=== PATIENT | male | born 1970 | race Caucasian/White ===

== ENCOUNTER 2020-11-23 20:00 | Inpatient (IN) ==
[2020-11-23] MEDS ORDERED: IOPAMIDOL 100 ML BOTTLE IV ONE (20:01)
[2020-11-23] MEDS ORDERED: ONDANSETRON 4 MG/2 ML VIAL IV ONE (20:14)
[2020-11-23] MEDS ORDERED: methylPREDNISolone SOD SUCC 125 MG/2 ML VIAL IV ONE (20:16)
[2020-11-23] MEDS ORDERED: FUROSEMIDE 40 MG/4 ML VIAL IV ONE (20:16)
[2020-11-23] MEDS ORDERED: IPRATROPIUM/ALBUTEROL 3 ML AMPUL.NEB NEB ONE (20:16)
--- NOTE | 2020-11-23 20:19 | Emergency Department Note ---
Abdominal Pain HPI General Chief Complaint: Abdominal Pain Stated Complaint: bilat feet swelling and abdm pain Time Seen by Provider: 11/23/20 20:05 Source: patient Mode of arrival: ambulatory Limitations: no limitations History of Present Illness HPI Narrative: 50-year-old male presents by private vehicle with multiple complaints. Patient complains of abdominal pain and shortness of breath and lower extremity swelling has gotten worse over the last week. Patient has a history of COPD, CHF, cardiomyopathy, AICD, liver failure DVT PE. Is also been having some chest pain in addition to abdominal pain. He is anticoagulated on Xarelto. He recently quit drinking alcohol and smoking 2 weeks ago. He was started on phenobarbital for alcohol withdrawal. Patient has noted increasing swelling in both of his legs. He has pain in both of his legs and redness in both his legs right worse than the left and it also feels warm. Patient was started on phenobarbital at [facility] due to alcohol withdrawal he has continued this per his primary doctor. Patient denies any history of illicit drug abuse. No fevers no chills.. Related Data Home Medications Medication Instructions Recorded Confirmed amiodarone 400 mg tablet 400 mg PO QDAY 06/02/17 06/02/17 oxycodone-acetaminophen 10 mg-325 1 tab PO Q4H tab 06/02/17 06/02/17 mg tablet rivaroxaban 20 mg tablet 20 mg PO QDAY 06/02/17 06/02/17 Previous Rx's Medication Instructions Recorded gabapentin 800 mg tablet 800 mg PO TID #90 tab 06/02/17 metoprolol succinate 100 mg 100 mg PO QDAY #30 tab 06/02/17 tablet,extended release 24 hr varenicline 1 mg tablet 1 mg PO BID #28 tab 06/02/17 Allergies Allergy/AdvReac Type Severity Reaction Status Date / Time Penicillins Allergy Intermediate Hives Verified 01/09/19 11:12 NSAIDS (Non-Steroidal Allergy Unknown Hives Verified 01/09/19 11:12 Anti-Inflamma ibuprofen [From Motrin] Allergy Anaphylaxis Verified 01/09/19 11:12 Review of Systems ROS ROS Narrative: Narrative: All systems ED: reviewed and negative except as stated. Constitutional: Denies fever, chills and sweats Eyes: Denies vision change Cardiovascular: Reports chest pain, orthopnea and edema Respiratory: Reports shortness of breath Gastrointestinal: Reports abdominal pain Genitourinary: Denies dysuria, frequency, urgency and hematuria Musculoskeletal: Denies back pain and joint pain Integumentary: Denies rash Neurological: Denies headache and dizziness Psychiatric: Denies anxiety, suicidal thoughts and homicidal thoughts Endocrine: Denies polydipsia and polyuria Hematological/Lymphatic: Denies easy bleeding and easy bruising PFSH Narrative Patient History Narrative: Narrative: Medical/Surgical/Family History All Active Problems (Updated 11/23/20 @ 23:32 by Rios Thompson MD) Chest pain, non-cardiac (Acute) Ascites due to alcoholic cirrhosis (Acute) COPD (chronic obstructive pulmonary disease) (Acute) Edema, peripheral (Acute) 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) Cigarette smoker (Chronic) Cardiomyopathy (Chronic) History of myocardial infarction (Chronic) History of automatic internal cardiac defibrillator (AICD) (Chronic) History of ventricular fibrillation (Chronic) History of pulmonary embolus (PE) (Chronic) Hypertension, essential (Chronic) COPD (chronic obstructive pulmonary disease) (Chronic) Asthma (Chronic) Obesity (BMI 30-39.9) (Chronic) Medical History Asthma Cardiomyopathy Cigarette smoker COPD (chronic obstructive pulmonary disease) History of myocardial infarction History of pulmonary embolus (PE) History of ventricular fibrillation Hypertension, essential [facility] (current) use of anticoagulants Obesity (BMI 30-39.9) Surgical History History of automatic internal cardiac defibrillator (AICD) History of automatic internal cardiac defibrillator (AICD) Social History Smoking Status: Former smoker Alcohol Intake Frequency: a few times a month Substance Use: does not use Exam Narrative Narrative: Constitutional: Awake alert no acute distress well-nourished well- developed HEENT: Normocephalic, atraumatic PERRLA, EOMI, oral mucosa moist, pharynx clear, Neck: Supple, no lymphadenopathy, no JVD Lungs: Diminished breath sounds with expiratory wheezes bilaterally lungs clear Cardiac: Regular tachycardic rhythm normal distal pulses, GI: Soft distended, diffusely tender no guarding no rebound Musculoskeletal: No tenderness, no deformities, 2+ pedal edema bilaterally, full range of motion Neuro: Awake alert, cranial nerves II through XII grossly intact, no focal motor or sensory deficits Psychiatric: Normal mood and affect Skin: Warm dry no rash, cap refill less than 2 seconds, bilateral lower extremities with erythema General Limitations: no limitations Course Consultations Consultation #1: Case discussed with hospitalist, Dr. Foy who agrees to admit patient. Time: 23:31 Vital Signs Vital signs: Vital Signs Temperature 98.4 F 11/23/20 20:01 Pulse Rate 133 H 11/23/20 20:01 Respiratory Rate 22 11/23/20 20:01 Blood Pressure 146/82 11/23/20 20:01 Pulse Oximetry (%) 95 11/23/20 20:01 Temperature 98.4 F 11/23/20 20:01 Pulse Rate 126 H 11/23/20 21:38 Respiratory Rate 19 11/23/20 21:01 Blood Pressure 123/85 11/23/20 21:38 Pulse Oximetry (%) 90 11/23/20 21:38 MDM MDM Narrative Medical decision making narrative: 50-year-old male history of COPD alcohol abuse presents with abdominal pain and swelling and lower extremity edema for the last week along with some shortness of breath. Chest x-ray appears clear today BNP and troponin are normal. Abdomen is distended CT abdomen does show a moderate amount of ascites. Also has lower extremity edema. Patient has never had ascites before. Case discussed with hospitalist, Dr. Painter who agrees admit patient to the hospital. Will consult radiology in the morning for possible paracentesis. All ED findings and plan for mission discussed with patient and he is agreeable. All questions were answered. Differential Diagnosis Differential Diagnosis: CHF, cirrhosis with ascites, COPD exacerbation, Lab Data Result diagrams: 11/23/20 20:25 11/23/20 20:25 Labs: Lab Results 11/23/20 11/23/20 11/23/20 Range/Units 20:25 20:25 20:25 WBC 10.2 (4.5-11.0) K/mcL RBC 3.30 L (4.50-5.90) M/mcL Hgb 12.1 L (13.5-16.5) g/dL Hct 35.7 L (41.0-55.0) % MCV 108.2 H (80.0-100.0) fL MCH 36.7 H (26.0-34.0) pg MCHC 33.9 (31.0-36.0) g/dL RDW 16.0 H (11.5-14.5) % Plt Count 122 L (140-440) K/mcL MPV 8.5 (7.4-10.4) fL Seg Neutrophils % 69 (38-78) % Lymphocytes % 27 (15-49) % Monocytes % (Manual) 3 (1-12) % Basophils % (Manual) 1 (0-2) % Platelet Estimate Decreased A (Normal) RBC Morphology Abnormal A (Normal) Macrocytosis 1+ A (None Seen) PT 19.1 H (11.9-14.5) sec INR 1.5 H (0.9-1.1) Sodium 133 (133-145) mmol/L Potassium 3.3 (3.3-5.1) mmol/L Chloride 94 L (96-108) mmol/L Carbon Dioxide 25 (22-30) mmol/L Anion Gap 14.0 (8.0-16.0) BUN 3 L (6-20) mg/dL Creatinine 0.6 L (0.7-1.2) mg/dL POC Creatinine 0.7 (0.6-1.2) mg/dL GFR Calculation 116 Glucose 98 (70-105) mg/dL Calcium 7.9 L (8.6-10.4) mg/dL Total Bilirubin 4.3 H (0.1-1.0) mg/dL AST 151 H (<40) U/L ALT 34 (<40) U/L Alkaline Phosphatase 624 H (39-117) U/L Troponin T (<0.03) ng/mL NT-Pro-B Natriuret Pep 76.1 (<125.0) pg/mL Total Protein 6.0 (5.9-8.4) gm/dL Albumin 2.6 L (3.2-5.2) gm/dL Globulin 3.4 (2.2-3.7) gm/dL Albumin/Globulin Ratio 0.8 L (1.0-2.3) Lipase 16 (7-60) U/L Urine Color Urine Appearance (Clear) Urine pH (5.0-9.0) Ur Specific [place] (1.000-1.035) Urine Protein (Negative) mg/dL Urine Glucose (UA) (Negative) mg/dL Urine Ketones (Negative) mg/dL Urine Occult Blood (Negative) mg/dL Urine Nitrate (Negative) Urine Bilirubin (Negative) mg/dL Urine Urobilinogen mg/dL Ur Leukocyte Esterase (Negative) /ug Urine RBC (0-3) /hpf Urine WBC (0-4) /hpf Ur Squamous Epith Cells (0-4) /hpf Urine Bacteria (0) /hpf Hyaline Casts (0-2) /lph Urine Mucus (None) /hpf Ur Culture Indicated? 11/23/20 11/23/20 Range/Units 20:25 21:09 WBC (4.5-11.0) K/mcL RBC (4.50-5.90) M/mcL Hgb (13.5-16.5) g/dL Hct (41.0-55.0) % MCV (80.0-100.0) fL MCH (26.0-34.0) pg MCHC (31.0-36.0) g/dL RDW (11.5-14.5) % Plt Count (140-440) K/mcL MPV (7.4-10.4) fL Seg Neutrophils % (38-78) % Lymphocytes % (15-49) % Monocytes % (Manual) (1-12) % Basophils % (Manual) (0-2) % Platelet Estimate (Normal) RBC Morphology (Normal) Macrocytosis (None Seen) PT (11.9-14.5) sec INR (0.9-1.1) Sodium (133-145) mmol/L Potassium (3.3-5.1) mmol/L Chloride (96-108) mmol/L Carbon Dioxide (22-30) mmol/L Anion Gap (8.0-16.0) BUN (6-20) mg/dL Creatinine (0.7-1.2) mg/dL POC Creatinine (0.6-1.2) mg/dL GFR Calculation Glucose (70-105) mg/dL Calcium (8.6-10.4) mg/dL Total Bilirubin (0.1-1.0) mg/dL AST (<40) U/L ALT (<40) U/L Alkaline Phosphatase (39-117) U/L Troponin T < 0.01 (<0.03) ng/mL NT-Pro-B Natriuret Pep (<125.0) pg/mL Total Protein (5.9-8.4) gm/dL Albumin (3.2-5.2) gm/dL Globulin (2.2-3.7) gm/dL Albumin/Globulin Ratio (1.0-2.3) Lipase (7-60) U/L Urine Color Marisol Urine Appearance Clear (Clear) Urine pH 5.0 (5.0-9.0) Ur Specific [place] 1.015 (1.000-1.035) Urine Protein Negative (Negative) mg/dL Urine Glucose (UA) Negative (Negative) mg/dL Urine Ketones Negative (Negative) mg/dL Urine Occult Blood Negative (Negative) mg/dL Urine Nitrate Negative (Negative) Urine Bilirubin Negative (Negative) mg/dL Urine Urobilinogen 4.0 A mg/dL Ur Leukocyte Esterase Negative (Negative) /ug Urine RBC 0 (0-3) /hpf Urine WBC 1 (0-4) /hpf Ur Squamous Epith Cells 0 (0-4) /hpf Urine Bacteria None (0) /hpf Hyaline Casts 6 H (0-2) /lph Urine Mucus Many A (None) /hpf Ur Culture Indicated? No ED POC Tests ED POC Tests: MICHAEL - SARS Antigen Negative Radiology Data Radiology results reviewed: Yes I reviewed the patient's radiology results. Radiology results narrative: Chest x-ray reviewed by me shows no definite acute process, official radiology report to follow, CT of the abdomen pelvis with IV contrast per radiologist shows diffuse low-attenuation of the liver with patchy heterogeneity likely related to hepatic dysfunction and possible hepatocellular necrosis. No periportal edema or hepatic volume loss. Patent portal vein. Moderate abdominal pelvic ascites and mild diffuse mesenteric edema. Anasarca. EKG Data EKG #1: EKG attestation: Yes I reviewed and interpreted this EKG. and Yes There are no EKG findings of acute coronary syndrome EKG results narrative: KG performed at 2023 shows sinus tachycardia rate of 134 with a left axis deviation, inferior Q waves, nonspecific ST changes Discharge Plan Patient/Caregiver Discharge Instructions Pt seen by CURRICULUM DEVELOPER/PA only: No Clinical Impression: Ascites due to alcoholic cirrhosis, COPD (chronic obstructive pulmonary disease), Edema, peripheral Patient Disposition: Xfer As Outpt/Obs ([facility]) Condition: Fair Follow up with: Chica,El, PA-C [Primary Care Provider] - Prescriptions: No Action rivaroxaban [Xarelto] 20 mg tablet 20 mg PO QDAY RF: 0 oxycodone-acetaminophen 10-325 mg tablet 1 tab PO Q4H RF: 0 amiodarone 400 mg tablet 400 mg PO QDAY RF: 0 gabapentin 800 mg tablet 800 mg PO TID Qty: 90 RF: 1 metoprolol succinate 100 mg tablet extended release 24 hr 100 mg PO QDAY Qty: 30 RF: 1 varenicline [Chantix] 1 mg tablet 1 mg PO BID Qty: 28 RF: 0
[2020-11-23 20:36] LABS: POC Creatinine 0.7 mg/dL (0.6-1.2)
[2020-11-23] MEDS: morphine 2 MG/ML VIAL IV PRN ×4 (21:01→23:28)
--- NOTE | 2020-11-23 21:05 | EKG ---
[facility] Test Date: 2020-11-23 Pat Name: Inocencio Olson Department: ED Room: Gender: Male Financial Services Specialist: : 1970 Requested By: Rios Thompson Order Number: [id number] Reading MD: Augie Rosas M.D. Measurements Intervals [place] Rate: 134 P: 28 TN: 117 QRS: -39 QRSD: 101 T: 63 QT: 318 QTc: 475 Interpretive Statements Sinus tachycardia Left axis deviation Low voltage, extremity leads POOR R-WAVE PROGRESSION, V3 NO PRIOR TRACING FOR COMPARISON BORDERLINE ECG Electronically Signed On 11-23-2020 21:04:37 PDT by Augie Rosas M.D. /[email or web address]/[id number]/[id number]
[2020-11-23 21:13] LABS: Hematocrit 35.7 % (41.0-55.0); Hemoglobin 12.1 g/dL (13.5-16.5); Mean Cell Volume 108.2 fL (80.0-100.0); Mean Corpuscular HGB Conc 33.9 g/dL (31.0-36.0); Mean Platelet Volume 8.5 fL (7.4-10.4); Platelet Count 122 K/mcL (140-440); WBC 10.2 K/mcL (4.5-11.0)
[2020-11-23 21:30] LABS: INR 1.5 (0.9-1.1); Prothrombin Time 19.1 sec (11.9-14.5)
[2020-11-23 21:31] LABS: proBNP 76.1 pg/mL (<125.0)
[2020-11-23 21:34] LABS: ALT/SGPT 34 U/L (<40); AST/SGOT 151 U/L (<40); Albumin 2.6 gm/dL (3.2-5.2); Albumin/Globulin Ratio 0.8 (1.0-2.3); Alkaline Phosphatase 624 U/L (39-117); Bilirubin,Total 4.3 mg/dL (0.1-1.0); Blood Urea Nitrogen 3 mg/dL (6-20); Calcium 7.9 mg/dL (8.6-10.4); Carbon Dioxide 25 mmol/L (22-30); Chloride 94 mmol/L (96-108); Globulin 3.4 gm/dL (2.2-3.7); Glomerular Filtration Rate 116; Glucose 98 mg/dL (70-105)
[2020-11-23 21:57] LABS: Basophils % (Manual) 1 % (0-2); Lymphocytes % 27 % (15-49); Macrocytosis 1+ (None Seen); Monocytes % (Manual) 3 % (1-12); Platelet Estimate DECREASED (Normal); RBC Morphology ABNORMAL (Normal); Segmented Neutrophils % 69 % (38-78)
[2020-11-23 22:30] LABS: Appearance,Urine CLEAR (Clear); Bilirubin,Urine Negative (Negative); Color,Urine AMBER; Culture Indicated,Urine No; Glucose,Urine (UA) Negative (Negative); Ketones,Urine Negative (Negative); Leukocyte Esterase,Urine Negative /ug (Negative); Mucus,Urine MANY /hpf; Nitrate,Urine Negative (Negative); Protein,Urine Negative (Negative); Specific Gravity,Urine 1.015 (1.000-1.035); Urine Blood Negative (Negative); Urine Hyaline Cast 6 /lph (0-2); Urine RBC 0 /hpf (0-3); Urine Squamous Epithelial Cell 0 /hpf (0-4); Urine WBC 1 /hpf (0-4)
[2020-11-24] MEDS: morphine 2 MG/ML VIAL IV PRN ×5 (01:32→22:01)
[2020-11-24 05:30] LABS: Basophils # (Auto) 0.02 K/mcL (0.00-0.20); Basophils % (Auto) 0.3 % (0.0-2.0); Eosinophils # (Auto) 0 K/mcL (0.00-0.70); Eosinophils % (Auto) 0 % (0.0-7.0); Hematocrit 32.2 % (41.0-55.0); Hemoglobin 11.1 g/dL (13.5-16.5); Lymphocytes # (Auto) 1.54 K/mcL (1.50-4.80); Mean Corpuscular HGB Conc 34.5 g/dL (31.0-36.0); Mean Platelet Volume 8.7 fL (7.4-10.4); Monocytes # (Auto) 0.18 K/mcL (0.10-0.90); Monocytes % (Auto) 2.7 % (1.0-12.0); Platelet Count 104 K/mcL (140-440); RBC 3.01 M/mcL (4.50-5.90); Red Cell Distribution Width 15.8 % (11.5-14.5); WBC 6.7 K/mcL (4.5-11.0)
[2020-11-24 05:52] LABS: ALT/SGPT 31 U/L (<40); AST/SGOT 134 U/L (<40); Albumin 2.6 gm/dL (3.2-5.2); Albumin/Globulin Ratio 0.9 (1.0-2.3); Alkaline Phosphatase 584 U/L (39-117); Bilirubin,Direct 2.3 mg/dL (<0.3); Bilirubin,Total 3.5 mg/dL (0.1-1.0); Blood Urea Nitrogen 5 mg/dL (6-20); Calcium 7.9 mg/dL (8.6-10.4); Carbon Dioxide 27 mmol/L (22-30); Chloride 95 mmol/L (96-108); Glomerular Filtration Rate 103; Glucose 184 mg/dL (70-105); Lactate Dehydrogenase 379 U/L (135-225); Phosphorous 2.2 mg/dL (2.5-4.5); Triglycerides 103 mg/dL (<150); Uric Acid 7.1 mg/dL (2.5-8.0)
--- NOTE | 2020-11-24 06:40 | XRay Report ---
CLINICAL INFORMATION: dyspnea COMPARISON: 01/09/2019 FINDINGS: Cardiomediastinal silhouette and pulmonary vessels remain normal. Single lead cardiac pacer/AICD remains in stable satisfactory position without complication. The lungs are clear. No effusions. IMPRESSION: Negative Interpreted and Authenticated by: El Pichardo 11/24/20
--- NOTE | 2020-11-24 07:31 | Cat Scan Report ---
CLINICAL INFORMATION: Abdominal pain COMPARISON: None. TECHNIQUE: Following enteric contrast, 80 cc of Isovue-370 were injected intravenously, and 60 seconds later, 0.625 mm helical slices were obtained from the mid heart through the subtrochanteric regions. Following reconstruction, 2.5 mm sagittal, coronal and axial reformatted images were processed and reviewed at bone, lung and soft tissue windows. Five minutes later, 0.625 mm helical slices were obtained from the mid heart through the kidneys and viewed at soft tissue windows.The exam was performed using radiation dose optimization techniques including, but not limited to, automated exposure control, adjustment of the mA and/or kV according to patient size and use of iterative reconstruction technique. FINDINGS: Lung bases show no abnormality - no effusion. The visualized heart is mildly enlarged. Pacemaker and leads are insatisfactory position. Abdominal images show mild hepatomegaly with severe diffuse steatosis. A 4.2 x 2 cm lower attenuation region in the lizzette hepatis is likely an area of more focally concentrated fat. There are no regions of hyperenhancement with rapid washout to suggest hepatoma. The gallbladder is contracted with diffuse wall enhancement. Common bile duct is normal caliber at 6 mm. Moderate ascites seen in the perihepatic perisplenic in the pelvic region. Moderate pericholecystic fluid is likely an extension of ascites. The portal vein is normal diameter. There are borderline perisplenic varices, but no perigastric or esophageal varices. The spleen is normal in size and attenuation. Both kidneys, adrenal glands, pancreas and aorta including aortic branches are normal in size configuration and attenuation without focal lesion. There is no free air or adenopathy. Pelvic images show prostate, seminal vesicles and urinary bladder are normal. Scattered sigmoid diverticuli appreciated, but no evidence of diverticulitis. The remaining large bowel, appendix region small bowel and stomach are grossly normal. Bone windows show L5-S1 posterior fusion laminectomy changes which are anatomically aligned. There are no focal osseous lesions. IMPRESSION: 1. Mild hepatomegaly with severe diffuse steatosis. A 4.2 x 2 cm region of more focally concentrated fat seen in the lizzette hepatis. Moderate ascites in compatible developing cirrhosis. Consider ultrasound-guided biopsy of the liver parenchyma to definitively diagnose and stage cirrhosis 2. Contracted gallbladder with wall enhancement. Pericholecystic fluid is noted but this likely represents an extension of ascites. Please correlate with symptoms of cholecystitis - consider ultrasound. 3. Mild atrophy of the pancreatic head and neck 4. Small periumbilical hernia containing a small amount of ascites. Interpreted and Authenticated by: El Pichardo 11/24/20
--- NOTE | 2020-11-24 08:30 | Internal Med History&Physical ---
HPI History of Present Illness Patient information: Note initiated : 11/24/20 at 8:28 am Service Date, if different from initiated Date: [] Patient: Inocencio Olson 50 y/o M admitted on 11/24/20 for bilat feet swelling and abdm pain. Chief Complaint: [] History of present illness: Mr. Olson is a 50 year old M presents to ED with abdominal pain and bilateral leg swelling for several days. Of note patient was recently discharged from [facility] on the for alcoholic hepatitis and withdrawal. Was post to be on prednisone for 4 weeks and then taper over two. Patient states he did have a 16 ounce beer Wednesday morning and had maybe 1 a few days prior to that was otherwise cut back significantly. He is on phenobarbital twice a day for withdrawal symptoms by his PCP. Also quit smoking several weeks ago. CT abdomen pelvis with fatty liver contracted gallbladder with some pericholecystic fluid noted but that is felt to be related to ascites. And he does not have any noticeable pain right upper quadran he has some generalized mild tenderness to palpation In the ED he was found to have moderate ascites and a paracentesis was ordered for the morning. Chest x-ray BNP troponin are unremarkable. Review of Systems: Pertinent positives as above. Denies headache/fever/chills/nausea/vomiting/chest or abdominal pain/cough/dyspnea/diarrhea. Any 10 point review of system reviewed negative PFSH PFSH All Active Problems (Updated 11/23/20 @ 23:32 by Rios Thompson MD) Chest pain, non-cardiac (Acute) Ascites due to alcoholic cirrhosis (Acute) COPD (chronic obstructive pulmonary disease) (Acute) Edema, peripheral (Acute) FPC (current) use of anticoagulants (Chronic) Cigarette smoker (Chronic) Cardiomyopathy (Chronic) History of myocardial infarction (Chronic) History of automatic internal cardiac defibrillator (AICD) (Chronic) History of ventricular fibrillation (Chronic) History of pulmonary embolus (PE) (Chronic) Hypertension, essential (Chronic) COPD (chronic obstructive pulmonary disease) (Chronic) Asthma (Chronic) Obesity (BMI 30-39.9) (Chronic) Medical History Asthma Cardiomyopathy Cigarette smoker COPD (chronic obstructive pulmonary disease) History of myocardial infarction History of pulmonary embolus (PE) History of ventricular fibrillation Hypertension, essential FPC (current) use of anticoagulants Obesity (BMI 30-39.9) Surgical History History of automatic internal cardiac defibrillator (AICD) History of automatic internal cardiac defibrillator (AICD) Social History (Updated 06/02/17 @ 15:58 by Rodolfo Raman PA-C) alcohol intake frequency: a few times a month substance use type: does not use MEDS/ALLERGIES Home Medications and Allergies Home Medications Medication Instructions Recorded Confirmed Type Lipitor 11/23/20 History albuterol sulfate 2 puff INHALATION Q6H PRN 11/23/20 11/24/20 History metoprolol succinate 100 mg PO DAILY 11/23/20 11/24/20 History rivaroxaban [Xarelto] 20 mg PO QDAY 11/23/20 11/24/20 History carisoprodol 350 mg PO BID 11/24/20 11/24/20 History furosemide 40 mg PO QID 11/24/20 11/24/20 History gabapentin 800 mg PO TID 11/24/20 11/24/20 History hydrocodone-acetaminophen 1 tab PO Q4H 11/24/20 11/24/20 History losartan 100 mg PO QID 11/24/20 11/24/20 History ondansetron 8 mg TRANSLINGUAL Q4H PRN 11/24/20 11/24/20 History phenobarbital 30 mg PO BID 11/24/20 11/24/20 History prednisone PO 11/24/20 11/24/20 History Allergies Allergy/AdvReac Type Severity Reaction Status Date / Time Penicillins Allergy Intermediate Hives Verified 01/09/19 11:12 NSAIDS (Non-Steroidal Allergy Unknown Hives Verified 01/09/19 11:12 Anti-Inflamma ibuprofen [From Motrin] Allergy Anaphylaxis Verified 01/09/19 11:12 EXAM Constitutional Vitals: Temp Pulse Resp BP Pulse Ox 98.4 F 107 H 20 124/78 93 11/24/20 07:16 11/24/20 07:16 11/24/20 07:16 11/24/20 07:16 11/24/20 07:16 Exam: General: Alert, Awake, No acute Distress Eyes/N/T: EOMI, PERRL, scleral icterus Head/Neck: neck supple, normocephalic atraumatic CV: Mildly tacky but regular, No murmurs, normal s1/s2 Pulm: Clear b/l, no wheezing/rhonchi/rales Abd: soft, nontender, +BS x4 Ext: no clubbing/cyanosis, 3+ b/l LE edema Neuro: Alert, no focal deficits, moves all extremities, CN 2-12 grossly intact, symmetrical strength b/l upper/lower, sensations intact b/l upper/lower Skin: warm/dry DATA Data Completed and Pending Labs: Labs from last 24 hours 11/24/20 11/24/20 11/23/20 05:00 05:00 21:09 WBC 6.7 RBC 3.01 L Hgb 11.1 L Hct 32.2 L MCV 107.0 H MCH 36.9 H MCHC 34.5 RDW 15.8 H Plt Count 104 L MPV 8.7 Neut % (Auto) 74.0 Lymph % (Auto) 23.0 [place] % (Auto) 2.7 Eos % (Auto) 0 Baso % (Auto) 0.3 Lymph # (Auto) 1.54 [place] # (Auto) 0.18 Eos # (Auto) 0 Baso # (Auto) 0.02 Seg Neutrophils % Lymphocytes % Monocytes % (Manual) Basophils % (Manual) Absolute Neutrophils 4.95 Platelet Estimate RBC Morphology Macrocytosis PT INR Sodium 130 L Potassium 4.1 Chloride 95 L Carbon Dioxide 27 Anion Gap 8.0 BUN 5 L Creatinine 0.8 POC Creatinine GFR Calculation 103 Glucose 184 H Uric Acid 7.1 Calcium 7.9 L Phosphorus 2.2 L Magnesium 1.5 L Total Bilirubin 3.5 H Direct Bilirubin 2.3 H GGT 782 H AST 134 H ALT 31 Alkaline Phosphatase 584 H Lactate Dehydrogenase 379 H Troponin T NT-Pro-B Natriuret Pep Total Protein 5.6 L Albumin 2.6 L Globulin 3.0 Albumin/Globulin Ratio 0.9 L Triglycerides 103 Lipase Urine Color Marisol Urine Appearance Clear Urine pH 5.0 Ur Specific [place] 1.015 Urine Protein Negative Urine Glucose (UA) Negative Urine Ketones Negative Urine Occult Blood Negative Urine Nitrate Negative Urine Bilirubin Negative Urine Urobilinogen 4.0 A Ur Leukocyte Esterase Negative Urine RBC 0 Urine WBC 1 Ur Squamous Epith Cells 0 Urine Bacteria None Hyaline Casts 6 H Urine Mucus Many A Ur Culture Indicated? No 11/23/20 11/23/20 11/23/20 20:25 20:25 20:25 WBC 10.2 RBC 3.30 L Hgb 12.1 L Hct 35.7 L MCV 108.2 H MCH 36.7 H MCHC 33.9 RDW 16.0 H Plt Count 122 L MPV 8.5 Neut % (Auto) Lymph % (Auto) [place] % (Auto) Eos % (Auto) Baso % (Auto) Lymph # (Auto) [place] # (Auto) Eos # (Auto) Baso # (Auto) Seg Neutrophils % 69 Lymphocytes % 27 Monocytes % (Manual) 3 Basophils % (Manual) 1 Absolute Neutrophils Platelet Estimate Decreased A RBC Morphology Abnormal A Macrocytosis 1+ A PT 19.1 H INR 1.5 H Sodium Potassium Chloride Carbon Dioxide Anion Gap BUN Creatinine POC Creatinine GFR Calculation Glucose Uric Acid Calcium Phosphorus Magnesium Total Bilirubin Direct Bilirubin GGT AST ALT Alkaline Phosphatase Lactate Dehydrogenase Troponin T < 0.01 NT-Pro-B Natriuret Pep Total Protein Albumin Globulin Albumin/Globulin Ratio Triglycerides Lipase Urine Color Urine Appearance Urine pH Ur Specific [place] Urine Protein Urine Glucose (UA) Urine Ketones Urine Occult Blood Urine Nitrate Urine Bilirubin Urine Urobilinogen Ur Leukocyte Esterase Urine RBC Urine WBC Ur Squamous Epith Cells Urine Bacteria Hyaline Casts Urine Mucus Ur Culture Indicated? 11/23/20 20:25 WBC RBC Hgb Hct MCV MCH MCHC RDW Plt Count MPV Neut % (Auto) Lymph % (Auto) [place] % (Auto) Eos % (Auto) Baso % (Auto) Lymph # (Auto) [place] # (Auto) Eos # (Auto) Baso # (Auto) Seg Neutrophils % Lymphocytes % Monocytes % (Manual) Basophils % (Manual) Absolute Neutrophils Platelet Estimate RBC Morphology Macrocytosis PT INR Sodium 133 Potassium 3.3 Chloride 94 L Carbon Dioxide 25 Anion Gap 14.0 BUN 3 L Creatinine 0.6 L POC Creatinine 0.7 GFR Calculation 116 Glucose 98 Uric Acid Calcium 7.9 L Phosphorus Magnesium Total Bilirubin 4.3 H Direct Bilirubin GGT AST 151 H ALT 34 Alkaline Phosphatase 624 H Lactate Dehydrogenase Troponin T NT-Pro-B Natriuret Pep 76.1 Total Protein 6.0 Albumin 2.6 L Globulin 3.4 Albumin/Globulin Ratio 0.8 L Triglycerides Lipase 16 Urine Color Urine Appearance Urine pH Ur Specific [place] Urine Protein Urine Glucose (UA) Urine Ketones Urine Occult Blood Urine Nitrate Urine Bilirubin Urine Urobilinogen Ur Leukocyte Esterase Urine RBC Urine WBC Ur Squamous Epith Cells Urine Bacteria Hyaline Casts Urine Mucus Ur Culture Indicated? A/P Narrative A/P Narrative: A: *Cirrhosis w/ascites from etoh, fatty liver: -Sequelae of thrombocytopenia/hyperbilirubinemia/hypoalbuminemia/macrocytosis -Paracentesis cc (11/24) *peripheral edema: 2/2 above *Hyponatremia: 2/2 above *Hypomagnesemia/hypophosphatemia: *h/o etoh abuse: states none since [facility] admit *h/o PE/PAF: On Xarelto *HTN: *Depression: *nonischemic CMP w/AICD (normal EF on most recent echo): * P: -IV lasix, start aldactone -s/p Paracentesis, pending fluid analysis -Replete electrolytes -cont ARB/BB -cont home prednisone and taper per pcp - -f/u with GI for cirrhosis, liver biopsy for confirmation -TEDs and elevate legs -ppx: Xarelto full code Time Spent With Patient Time: Total time spent is greater than 50% in coordination of care (as documented) at patient's floor/unit and/or counseling patient:
[2020-11-24] MEDS ORDERED: MAGNESIUM SULFATE 2 GM/50 ML BAG IV ONE (09:51)
[2020-11-24] MEDS ORDERED: chlordiazePOXIDE 25 MG CAPSULE PO PRN (10:15)
[2020-11-24] MEDS ORDERED: LORazepam 2 MG/ML VIAL IV PRN (10:15)
[2020-11-24] MEDS ORDERED: PHENobarbital 32.4 MG TABLET PO ONE ×2 (10:34→10:40)
[2020-11-24] MEDS ORDERED: SENNOSIDES 1 TABLET PO PRN (10:37)
[2020-11-24] MEDS ORDERED: POLYETHYLENE GLYCOL 3350 17 GM PACKET PO PRN (10:37)
[2020-11-24] MEDS ORDERED: METOCLOPRAMIDE 10 MG/2 ML VIAL IV PRN (10:37)
[2020-11-24] MEDS ORDERED: POTASSIUM CHLORIDE 20 MEQ TABLET PO PRN ×2 (10:37)
[2020-11-24] MEDS ORDERED: ONDANSETRON 4 MG/2 ML VIAL IV PRN (10:37)
[2020-11-24] MEDS ORDERED: MAGNESIUM SULFATE 2 GM/50 ML BAG IV PRN (10:37)
[2020-11-24] MEDS ORDERED: POTASSIUM CHLORIDE 40 MEQ in DEXTROSE 5% IN WATER 500 ML IV PRN (10:37)
[2020-11-24] MEDS: MULTIVIT,THER IRON,CA,FA & MIN 1 TABLET PO SCH (10:42)
[2020-11-24] MEDS: FOLIC ACID 1 MG TABLET PO SCH (10:42)
[2020-11-24] MEDS: ONDANSETRON 4 MG/2 ML VIAL IV PRN ×2 (10:42→16:13)
[2020-11-24] MEDS: THIAMINE 100 MG TABLET PO SCH (10:42)
[2020-11-24 10:44] LABS: LDH,Peritoneal Fluid 228 U/L; Total Protein,Peritoneal Fluid 0.9 gm/dL
[2020-11-24 11:30] LABS: Amphetamine Screen,Urine None detected; Barbiturate Screen,Urine Suspect positive; Benzodiazepines Screen,Urine Suspect positive; Cannabinoid Screen,Urine None detected; Cocaine Screen,Urine None detected; Opiate Screen,Urine Suspect Positive; Oxycodone, Urine Screen None detected; Phencyclidine Screen,Urine None detected
[2020-11-24] MEDS: SPIRONOLACTONE 25 MG TABLET PO SCH (11:34)
[2020-11-24] MEDS: LOSARTAN 50 MG TABLET PO SCH (11:34)
[2020-11-24] MEDS: predniSONE 20 MG TABLET PO SCH (11:34)
[2020-11-24] MEDS: FUROSEMIDE 40 MG/4 ML VIAL IV SCH ×2 (12:09→16:03)
[2020-11-24] MEDS: ALBUMIN HUMAN 12.5 GM/50 ML BAG IV SCH ×2 (12:10→16:13)
[2020-11-24 13:01] LABS: Mesothelial,Peritoneal Fluid 29 %; Monocyte,Peritoneal Fluid 34 %; Neutrophils,Peritoneal Fluid 26 %; Nucleated Cel,Peritoneal Fluid 67 /cumm; RBC,Peritoneal Fluid <50,000 /cumm
[2020-11-24] MEDS: 0.9 % SODIUM CHLORIDE 10 ML SYRINGE IV SCH ×3 (13:51→22:04)
[2020-11-24] MEDS: HYDROcodone/APAP 10/325MG TABLET PO PRN ×2 (13:58→19:50)
[2020-11-24] MEDS: GABAPENTIN 400 MG CAPSULE PO SCH ×2 (13:58→21:35)
--- NOTE | 2020-11-24 16:36 | Ultrasound Report ---
Ultrasound-guided paracentesis Technique: The procedure and risks including possibility of bleeding, infection, bowel and parenchymal organ perforation were explained the patient. He understood and wished to proceed. Account Specialist scanning demonstrated Ascites in the right lower quadrant which was free of bowel. The skin was marked, prepped and locally anesthetized 1% lidocaine to the level of the parietal peritoneum using a 25-gauge needle. A 18-gauge Yueh needle was then placed under sonographic guidance into the ascites and 50 cc of turbid ascites was aspirated and sent for requested studies. The needle was removed. Postprocedure scanning shows minimal residual ascites. No apparent complication - patient tolerated procedure well. IMPRESSION: Successful ultrasound-guided paracentesis yielding only 15 cc of turbid peritoneal fluid. Fluid was sent to the laboratory for requested studies. Postprocedure scanning shows only minimal residual fluid. Patient tolerated procedure well without apparent complication Interpreted and Authenticated by: El Pichardo 11/24/20
[2020-11-24] MEDS: RIVAROXABAN 20 MG TABLET PO SCH (17:29)
[2020-11-24] MEDS: IPRATROPIUM/ALBUTEROL 3 ML AMPUL.NEB NEB PRN (20:18)
[2020-11-24] MEDS ORDERED: CARISOPRODOL 350 MG TABLET PO PRN (21:00)
[2020-11-24] MEDS: NEUTRA PHOS 1 PACKET PO SCH (21:36)
[2020-11-24] MEDS: PHENobarbital 32.4 MG TABLET PO SCH (21:36)
[2020-11-24] MEDS: PHENobarb/HYOSCY/ATROPINE/SCOP 1 DOSE BOTTLE PO PRN (22:38)
[2020-11-25] MEDS: HYDROcodone/APAP 10/325MG TABLET PO PRN ×4 (00:07→20:24)
[2020-11-25] MEDS: 0.9 % SODIUM CHLORIDE 10 ML SYRINGE IV SCH ×6 (01:18→12:57)
[2020-11-25] MEDS: ONDANSETRON 4 MG/2 ML VIAL IV PRN ×2 (03:47→13:46)
[2020-11-25] MEDS: morphine 2 MG/ML VIAL IV PRN ×4 (03:47→16:42)
--- NOTE | 2020-11-25 07:32 | Internal Med Progress Note ---
SUBJECTIVE Subjective Patient information: Note initiated : 11/25/20 at 7:29 am Service Date, if different from initiated Date: [] Patient: Inocencio Olson 50 y/o M admitted on 11/24/20 for bilat feet swelling and abdm pain. Chief Complaint: [] Interval history: History of present illness: Mr. Olson is a 50 year old M presents to ED with abdominal pain and bilateral leg swelling for several days. Of note patient was recently discharged from [facility] on the for alcoholic hepatitis and withdrawal. Was post to be on prednisone for 4 weeks and then taper over two. Patient states he did have a 16 ounce beer Wednesday morning and had maybe 1 a few days prior to that was otherwise cut back significantly. He is on phenobarbital twice a day for withdrawal symptoms by his PCP. Also quit smoking several weeks ago. CT abdomen pelvis with fatty liver contracted gallbladder with some pericholecystic fluid noted but that is felt to be related to ascites. And he does not have any noticeable pain right upper quadran he has some generalized mild tenderness to palpation In the ED he was found to have moderate ascites and a paracentesis was ordered for the morning. Chest x-ray BNP troponin are unremarkable. 11/25 Feeling much better. Leg swelling feels much better although still quite a bit of edema. Review of Systems: denies headache/fever/chills/nausea/vomiting/chest or abdominal pain/cough/dyspnea/diarrhea. Otherwise see above. Constitutional Vitals: Vital Signs Temp Pulse Resp BP Pulse Ox 98.5 F 100 H 16 108/64 93 11/25/20 03:45 11/25/20 03:45 11/25/20 03:45 11/25/20 03:45 11/25/20 03:45 Period Temp Pulse Resp BP Sys/Campbell Pulse Ox Last 24 Hr 97.9 F-99.0 F 98-110 16-22 101-130/61-79 92-97 Intake and Output 11/24/20 11/25/20 11/25/20 21:59 05:59 13:59 Intake Total 1200 960 Balance 1200 960 Weight 122.425 kg Intake & Output: Intake & Output 11/24/20 11/25/20 11/25/20 21:59 05:59 13:59 Intake Total 1200 960 Balance 1200 960 Weight 122.425 kg Intake: IV 100 Oral 1200 860 Other: Meal Dinner Egg salad sandwich x 2 Percent of Meal Consumed 100% 100% Feeding Ability Independent Independent Urine Appearance Clear Urine Color Pale Urine Odor Normal # Voids 8 1 Exam: General: Alert, Awake, No acute Distress Eyes/N/T: EOMI,scleral icterus Head/Neck: neck supple, CV: Mildly tacky but regular, No murmurs, Pulm: Clear b/l, no wheezing/rhonchi/rales Abd: soft, nontender, +BS x4 Ext: no clubbing/cyanosis, 3+ b/l LE edema Neuro: Alert, no focal deficits, moves all extremities, Skin: warm/dry OBJ DATA Labs CBC & Chem 7: 11/24/20 05:00 11/25/20 05:32 Labs: Abnormal Lab Results 11/24/20 11/24/20 11/23/20 05:00 05:00 21:09 RBC 3.01 L Hgb 11.1 L Hct 32.2 L MCV 107.0 H MCH 36.9 H RDW 15.8 H Plt Count 104 L Platelet Estimate RBC Morphology Macrocytosis PT INR Sodium 130 L Chloride 95 L BUN 5 L Creatinine Glucose 184 H Calcium 7.9 L Phosphorus 2.2 L Magnesium 1.5 L Total Bilirubin 3.5 H Direct Bilirubin 2.3 H GGT 782 H AST 134 H Alkaline Phosphatase 584 H Lactate Dehydrogenase 379 H Total Protein 5.6 L Albumin 2.6 L Albumin/Globulin Ratio 0.9 L Urine Urobilinogen Hyaline Casts Urine Mucus Urine Opiates Screen Suspect positive A Ur Barbiturates Screen Suspect positive A U Benzodiazepines Scrn Suspect positive A 11/23/20 11/23/20 11/23/20 21:09 20:25 20:25 RBC 3.30 L Hgb 12.1 L Hct 35.7 L MCV 108.2 H MCH 36.7 H RDW 16.0 H Plt Count 122 L Platelet Estimate Decreased A RBC Morphology Abnormal A Macrocytosis 1+ A PT 19.1 H INR 1.5 H Sodium Chloride BUN Creatinine Glucose Calcium Phosphorus Magnesium Total Bilirubin Direct Bilirubin GGT AST Alkaline Phosphatase Lactate Dehydrogenase Total Protein Albumin Albumin/Globulin Ratio Urine Urobilinogen 4.0 A Hyaline Casts 6 H Urine Mucus Many A Urine Opiates Screen Ur Barbiturates Screen U Benzodiazepines Scrn 11/23/20 20:25 RBC Hgb Hct MCV MCH RDW Plt Count Platelet Estimate RBC Morphology Macrocytosis PT INR Sodium Chloride 94 L BUN 3 L Creatinine 0.6 L Glucose Calcium 7.9 L Phosphorus Magnesium Total Bilirubin 4.3 H Direct Bilirubin GGT AST 151 H Alkaline Phosphatase 624 H Lactate Dehydrogenase Total Protein Albumin 2.6 L Albumin/Globulin Ratio 0.8 L Urine Urobilinogen Hyaline Casts Urine Mucus Urine Opiates Screen Ur Barbiturates Screen U Benzodiazepines Scrn Meds: Medications Hydrocodone Bitart/Acetaminophen (Hydrocodone/Apap 10/325mg Tablet) 1 tab PO Q4HP PRN; Protocol PRN Reason: Pain Last Admin: 11/25/20 00:07 Dose: 1 tab Documented by: Albuterol/Ipratropium (Ipratropium/Albuterol 3 Ml Ampul.Neb) 3 ml NEB Q4HP PRN PRN Reason: Shortness Of Breath Last Admin: 11/24/20 20:18 Dose: 3 ml Documented by: Bell[place]onna/Phenobarbital (Phenobarb/Hyoscy/Atropine/Scop 1 Dose Bottle) 1 dose PO Q4HP PRN PRN Reason: Dyspepsia Last Admin: 11/24/20 22:38 Dose: 1 dose Documented by: Carisoprodol (Carisoprodol 350 Mg Tablet) 350 mg PO BIDP PRN PRN Reason: Muscle Spasm Chlordiazepoxide HCl (Chlordiazepoxide 25 Mg Capsule) 50 mg PO Q4HP PRN PRN Reason: Alcohol Withdrawal Folic Acid (Folic Acid 1 Mg Tablet) 1 mg PO DAILY [facility] Last Admin: 11/24/20 10:42 Dose: 1 mg Documented by: Furosemide (Furosemide 40 Mg/4 Ml Vial) 40 mg IV BIDD [facility] Last Admin: 11/24/20 16:03 Dose: 40 mg Documented by: Gabapentin (Gabapentin 400 Mg Capsule) 800 mg PO TID [facility] Last Admin: 11/24/20 21:35 Dose: 800 mg Documented by: Albumin Human (Buminate) 12.5 gm in 50 mls @ 100 mls/hr IV BIDD JUAN Stop: 11/25/20 16:29 Last Infusion: 11/24/20 23:50 Dose: Infused Documented by: Potassium Chloride 40 meq/ (Dextrose) 520 mls @ 130 mls/hr IV UD PRN PRN Reason: Potassium < 3 Magnesium Sulfate (Magnesium Sulfate) 2 gm in 50 mls @ 50 mls/hr IV UD PRN PRN Reason: Magnesium </= 1.6 Iron Carb/Multivit/[place]/Folic Acid (Multivit,Ther Iron,Ca,Fa & Min 1 Tablet) 1 tab PO DAILY [facility] Last Admin: 11/24/20 10:42 Dose: 1 tab Documented by: Lorazepam (Lorazepam 2 Mg/Ml Vial) 0 mg IV Q4HP PRN; Protocol PRN Reason: Alcohol Withdrawal Losartan Potassium (Losartan 50 Mg Tablet) 100 mg PO DAILY [facility] Last Admin: 11/24/20 11:34 Dose: 100 mg Documented by: Metoclopramide HCl (Metoclopramide 10 Mg/2 Ml Vial) 10 mg IV Q6HP PRN PRN Reason: Nausea And Vomiting Metoprolol Succinate (Metoprolol Succinate 50 Mg Tab.Xl.24h) 100 mg PO DAILY [facility] Morphine Sulfate (Morphine 2 Mg/Ml Vial) 2 - 4 mg IV Q4HP PRN; Protocol PRN Reason: Per Pain Protocol Last Admin: 11/25/20 03:47 Dose: 2 mg Documented by: Ondansetron HCl (Ondansetron 4 Mg/2 Ml Vial) 4 mg IV Q4HP PRN PRN Reason: Nausea And Vomiting Last Admin: 11/25/20 03:47 Dose: 4 mg Documented by: Ondansetron HCl (Ondansetron 4 Mg/2 Ml Vial) 4 mg IV Q4HP PRN PRN Reason: Nausea And Vomiting Phenobarbital (Phenobarbital 32.4 Mg Tablet) 32.4 mg PO BID [facility] Last Admin: 11/24/20 21:36 Dose: 30 mg Documented by: Polyethylene Glycol (Polyethylene Glycol 3350 17 Gm Packet) 17 gm PO DAILYP PRN PRN Reason: Constipation Potassium Chloride (Potassium Chloride 20 Meq Tablet) 40 meq PO UD PRN PRN Reason: Potssium is 3-3.5 Potassium Chloride (Potassium Chloride 20 Meq Tablet) 40 meq PO UD PRN PRN Reason: Potassium < 3 Potassium/Phosphorus/Sodium (Neutra Phos 1 Packet) 2 packet PO BID [facility] Stop: 11/25/20 09:01 Last Admin: 11/24/20 21:36 Dose: 2 packet Documented by: Prednisone (Prednisone 20 Mg Tablet) 20 mg PO [facility] Last Admin: 11/24/20 11:34 Dose: 20 mg Documented by: Rivaroxaban (Rivaroxaban 20 Mg Tablet) 20 mg PO QPMCC [facility] Last Admin: 11/24/20 17:29 Dose: 20 mg Documented by: Senna (Sennosides 1 Tablet) 2 tab PO DAILYP PRN PRN Reason: Constipation Sodium Chloride (0.9 % Sodium Chloride 10 Ml Syringe) 10 ml IV Q8 [facility] Last Admin: 11/25/20 06:38 Dose: Not Given Documented by: Sodium Chloride (0.9 % Sodium Chloride 10 Ml Syringe) 10 ml IV Q8 [facility] Last Admin: 11/25/20 06:38 Dose: Not Given Documented by: Spironolactone (Spironolactone 25 Mg Tablet) 100 mg PO DAILY [facility] Last Admin: 11/24/20 11:34 Dose: 100 mg Documented by: Thiamine HCl (Thiamine 100 Mg Tablet) 100 mg PO QDAY [facility] Last Admin: 11/24/20 10:42 Dose: 100 mg Documented by: A/P Narrative A/P Narrative: A: *Cirrhosis 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
[2020-11-25] MEDS: FUROSEMIDE 40 MG/4 ML VIAL IV SCH ×2 (07:45→15:35)
[2020-11-25] MEDS: predniSONE 20 MG TABLET PO SCH (07:51)
[2020-11-25] MEDS: ALBUMIN HUMAN 12.5 GM/50 ML BAG IV SCH ×2 (07:52→15:38)
[2020-11-25 08:36] LABS: ALT/SGPT 22 U/L (<40); AST/SGOT 90 U/L (<40); Albumin 2.4 gm/dL (3.2-5.2); Albumin/Globulin Ratio 0.9 (1.0-2.3); Alkaline Phosphatase 489 U/L (39-117); Bilirubin,Direct 1.5 mg/dL (<0.3); Bilirubin,Total 2.8 mg/dL (0.1-1.0); Blood Urea Nitrogen 8 mg/dL (6-20); Calcium 7.7 mg/dL (8.6-10.4); Carbon Dioxide 28 mmol/L (22-30); Chloride 99 mmol/L (96-108); Globulin 2.8 gm/dL (2.2-3.7); Glomerular Filtration Rate 116; Glucose 119 mg/dL (70-105); Lactate Dehydrogenase 407 U/L (135-225); Phosphorous 2.6 mg/dL (2.5-4.5); Triglycerides 89 mg/dL (<150)
[2020-11-25] MEDS: THIAMINE 100 MG TABLET PO SCH (08:48)
[2020-11-25] MEDS: LOSARTAN 50 MG TABLET PO SCH (08:49)
[2020-11-25] MEDS: METOPROLOL SUCCINATE 50 MG TAB.XL.24H PO SCH (08:49)
[2020-11-25] MEDS: FOLIC ACID 1 MG TABLET PO SCH (08:49)
[2020-11-25] MEDS: SPIRONOLACTONE 25 MG TABLET PO SCH (08:50)
[2020-11-25] MEDS: NEUTRA PHOS 1 PACKET PO SCH (08:51)
[2020-11-25] MEDS: MULTIVIT,THER IRON,CA,FA & MIN 1 TABLET PO SCH (08:51)
[2020-11-25] MEDS: GABAPENTIN 400 MG CAPSULE PO SCH ×3 (08:51→21:05)
[2020-11-25] MEDS: PHENobarbital 32.4 MG TABLET PO SCH ×2 (08:52→21:05)
[2020-11-25] MEDS: PHENobarb/HYOSCY/ATROPINE/SCOP 1 DOSE BOTTLE PO PRN (12:29)
[2020-11-25] MEDS: RIVAROXABAN 20 MG TABLET PO SCH (15:37)
[2020-11-25] MEDS: IPRATROPIUM/ALBUTEROL 3 ML AMPUL.NEB NEB PRN (20:39)
[2020-11-26] MEDS: morphine 2 MG/ML VIAL IV PRN ×2 (00:09→08:57)
[2020-11-26] MEDS: 0.9 % SODIUM CHLORIDE 10 ML SYRINGE IV SCH ×4 (00:11→06:13)
[2020-11-26] MEDS: PHENobarb/HYOSCY/ATROPINE/SCOP 1 DOSE BOTTLE PO PRN ×2 (02:23→10:43)
[2020-11-26] MEDS: HYDROcodone/APAP 10/325MG TABLET PO PRN ×2 (02:29→07:27)
[2020-11-26] MEDS: FUROSEMIDE 40 MG/4 ML VIAL IV SCH (07:27)
[2020-11-26] MEDS: predniSONE 20 MG TABLET PO SCH (07:27)
[2020-11-26] MEDS: ALBUMIN HUMAN 12.5 GM/50 ML BAG IV SCH (07:39)
[2020-11-26] MEDS: GABAPENTIN 400 MG CAPSULE PO SCH (08:54)
[2020-11-26] MEDS: METOPROLOL SUCCINATE 50 MG TAB.XL.24H PO SCH (08:54)
[2020-11-26] MEDS: LOSARTAN 50 MG TABLET PO SCH (08:55)
[2020-11-26] MEDS: MULTIVIT,THER IRON,CA,FA & MIN 1 TABLET PO SCH (08:55)
[2020-11-26] MEDS: PHENobarbital 32.4 MG TABLET PO SCH (08:55)
[2020-11-26] MEDS: THIAMINE 100 MG TABLET PO SCH (08:56)
[2020-11-26] MEDS: SPIRONOLACTONE 25 MG TABLET PO SCH (08:56)
[2020-11-26] MEDS: FOLIC ACID 1 MG TABLET PO SCH (08:56)
--- NOTE | 2020-11-26 11:33 | Non-GYN Cytology Report ---
Non Plum Packer Cytology NG Diagnosis PERITONEAL FLUID, PARACENTESIS: --- REACTIVE MESOTHELIAL CELLS WITH ACUTE AND CHRONIC INFLAMMATION. --- NO ATYPICAL OR MALIGNANT CELLS IDENTIFIED. (RLF:bmw) NG Micro Description ThinPrep, cytospin and cell block slides are examined and demonstrate reactive mesothelial cells, macrophages, lymphocytes and neutrophils. No atypical or malignant cells are identified. NG Gross Description Received 20 mL yellow fluid. Electronically Signed Sharyn Garg MD, FCAP Electronically Signed 11/26/2020 11:32
--- NOTE | 2020-11-26 11:43 | Discharge Summary ---
Discharge Provider Provider Patient information: Note initiated : 11/26/20 at 11:34 am Service Date, if different from initiated Date: [] Patient: Inocencio Olson 50 y/o M admitted on 11/24/20 for bilat feet swelling and abdm pain. Chief Complaint: Leg edema.Ascites. Cirrhosis of liver Date of admission: 11/24/20 01:36 Discharge date: 11/26/20 Primary care physician: El Coto PA-C Discharge Meds Discharge Medications Home Medications Xarelto 20 mg PO QPMCC 11/23/20 [History Confirmed 11/24/20 Last Taken 11/23/20 21:00] albuterol sulfate 2 puff INHALATION Q6H PRN 11/23/20 [History Confirmed 11/24/20 Last Taken 11/23/20 09:00] metoprolol succinate 100 mg PO DAILY 11/23/20 [History Confirmed 11/24/20 Last Taken 11/23/20 21:00] carisoprodol 350 mg PO BIDP PRN 11/24/20 [History Confirmed 11/24/20 Last Taken 11/23/20 21:00] gabapentin 800 mg PO TID 11/24/20 [History Confirmed 11/24/20 Last Taken 11/23/20 21:00] hydrocodone-acetaminophen 1 tab PO Q4HP PRN 11/24/20 [History Confirmed 11/24/20 Last Taken 11/23/20 12:00] losartan 100 mg PO DAILY 11/24/20 [History Confirmed 11/24/20 Last Taken 11/23/20 21:00] ondansetron 8 mg TRANSLINGUAL Q4H PRN 11/24/20 [History Confirmed 11/24/20 Last Taken 10/29/20] prednisone 20 mg PO QAM 11/24/20 [History Confirmed 11/25/20 Last Taken Unknown] furosemide 40 mg PO BID 30 Days #60 tab 11/26/20 [Rx Last Taken Unknown] hihgesti-vdyc-RN-calcium-mins [Thera M Plus (ferrous fumarat)] 1 tab PO DAILY 30 Days tab 11/26/20 [Rx Last Taken Unknown] phenobarbital 30 mg PO DAILY 30 Days tab 11/26/20 [Rx Last Taken Unknown] spironolactone 100 mg PO DAILY 30 Days tab 11/26/20 [Rx Last Taken Unknown] thiamine mononitrate (vit B1) 100 mg PO QDAY 30 Days #30 tab 11/26/20 [Rx Last Taken Unknown] COURSE Hospital Course Hospital course: Mr. Olson is a 50 year old M presents to ED with abdominal pain and bilateral leg swelling for several days. The patient was recently discharged from [facility] on the for alcoholic hepatitis and withdrawal. Was post to be on prednisone for 4 weeks and then taper over two. Patient states he did have a 16 ounce beer Wednesday morning and had maybe 1 a few days prior to that was otherwise cut back significantly. He is on phenobarbital twice a day for withdrawal symptoms by his PCP. Also quit smoking several weeks ago. Pt has Hx of PE and is on Xarelto. In the ED he was found to have moderate ascites and a paracentesis was ordered for the morning. Chest x-ray BNP troponin are unremarkable. 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 No evidence of fulminant hepatic failure - Paracentesis only 15cc (11/24) - SAAG >1.1 and total protein low indicative of uncomplicated ascites from cirrhosis - Cont lasix. Added Aldactone. 2 g sodium diet. - Daily weights. Strict I's and O's. Outpatient follow-up with PCP within 1 week #Thrombocytopenia/anemia. Sequela of cirrhosis of liver. -No evidence of bleeding. Continue to monitor CBC as outpatient. # peripheral edema: 2/2 above. Treated with Lasix/Aldactone. # Hyponatremia: Serum sodium 130 on admission. 135 on discharge. 2/2 above. Improved # Hypomagnesemia/hypophosphatemia: Improved # H/o etoh abuse: states none since [facility] admit # H/o PE/PAF: On Xarelto # HTN: Stable. Continue metoprolol, Lasix, Aldactone # Depression: No suicidal ideation. Outpatient follow-up # Nonischemic CMP w/AICD (normal EF on most recent echo). Well compensated Patient discharged home in a stable condition. Disposition: Patient discharged home Condition on discharge: Hemodynamically stable. Tolerated p.o. Discharge activity: As tolerated Discharge diet: 2 g sodium diet Discharge medication: See med reconciliation form Discharge follow-up: Primary care physician within 1 week for post hospital follow-up Discharge diagnosis: Cirrhosis of liver due to alcohol Time Spent with Patient Time attestation: Total time spent providing and/or coordinating discharge services: Time spent: Greater than 30 minutes (36 mins) EXAM Constitutional Vitals: Temp Pulse Resp BP Pulse Ox 96.6 F L 85 16 89/53 90 11/26/20 08:00 11/26/20 08:00 11/26/20 08:00 11/26/20 08:00 11/26/20 08:00 Discharge Plan Patient/Caregiver Discharge Instructions Activity: increase activity as tolerated Diet: Low Sodium (2gm) and Low Fat Prescriptions: New spironolactone 25 mg Tablet 100 mg PO DAILY 30 Days RF: 0 Thera M Plus (ferrous fumarat) 9 mg iron-400 mcg Tablet 1 tab PO DAILY 30 Days RF: 0 thiamine mononitrate (vit B1) 100 mg Tablet 100 mg PO QDAY 30 Days Qty: 30 RF: 0 Continued metoprolol succinate 100 mg Tablet Extended Release 24 Hr 100 mg PO DAILY RF: 0 Xarelto 20 mg Tablet 20 mg PO QPMCC RF: 0 albuterol sulfate 90 mcg/actuation Hfa Aerosol Inhaler 2 puff INHALATION Q6H PRN (Reason: Shortness Of Breath Or Wheezing) RF: 0 carisoprodol 350 mg tablet 350 mg PO BIDP PRN (Reason: Muscle Spasm) RF: 0 hydrocodone-acetaminophen 10-325 mg tablet 1 tab PO Q4HP PRN (Reason: Pain) RF: 0 ondansetron 8 mg tablet,disintegrating 8 mg translingual Q4H PRN (Reason: Nausea) RF: 0 gabapentin 800 mg tablet 800 mg PO TID RF: 0 losartan 100 mg tablet 100 mg PO DAILY RF: 0 prednisone 20 mg tablet 20 mg PO QAM RF: 0 Changed furosemide 40 mg tablet 40 mg PO BID 30 Days Qty: 60 RF: 0 phenobarbital 30 mg tablet 30 mg PO DAILY 30 Days RF: 0 Discontinued Lipitor 10 mg QAM RF: 0 Follow Up Plan Follow up with: El Coto PA-C [Primary Care Provider] - Patient Disposition: Home, Self-Care Prognosis: Fair Discharge Orders: Discharge Order (Routine); Ordered 11/26/20 Ordered By: Douglas Tucker
[2020-12-06 11:29] LABS: Opiate Confirmation Positive
== END 2020-11-26 13:37 | disposition home or self-care (01) | DRG 433 ==
LOC: MEDSUR 20:00 → ED 20:00 → MEDSUR 11-24 01:36 → OBSVTOIN 11-24 01:36
PROVIDERS: ADMIT Internal Medicine; ATTEND Internal Medicine